=== PATIENT | female | born 1955 | race Caucasian/White ===

== ENCOUNTER → 2018-09-02 | Outpatient (CLI) | payer OTHER, BC ==
[~2018-09-02] MED LIST: ASCO500T8 PO; ASPI-496 PO; ATOR20TA37 PO; CHOL200024 PO; CYAN50008 PO; OMEG100023 PO
[2018-09-02 13:27] LABS: BASOPHILS # (AUTO) 0.05 x10^3/uL (0-0.1); BASOPHILS % (AUTO) 1 % (0-1); EOSINOPHILS # (AUTO) 0.08 x10^3/uL (0-0.4); EOSINOPHILS % (AUTO) 1 % (1-7); LYMPHOCYTES % (AUTO) 23 % (22-44); MD NO; MEAN CORPUSCULAR HEMOGLOBIN 31.1 pg (27.0-34.8); MEAN CORPUSCULAR HGB CONC 34.2 g/dL (32.4-35.8); MEAN CORPUSCULAR VOLUME 90.9 fL (80-100); MEAN PLATELET VOLUME 7.9 fL (7.4-10.4); MONOCYTES # (AUTO) 0.53 x10^3/uL (0.2-0.8); MONOCYTES % (AUTO) 6 % (2-9); NEUTROPHILS # (AUTO) 6.02 x10^3/uL (1.8-6.8); NEUTROPHILS % (AUTO) 69 % (42-75); PLATELET COUNT 340 x10^3/uL (130-400); RED BLOOD COUNT 5.04 x10^6/uL (3.82-5.3); RED CELL DISTRIBUTION WIDTH 13.3 % (9.6-15.2)
[2018-09-02 13:32] LABS: INTERNATIONAL NORMALIZED RATIO 0.9 (0.93-1.1); PROTHROMBIN TIME 9.5 Seconds (9.6-11.5)
[2018-09-02 13:34] LABS: ALBUMIN 3.9 g/dL (3.4-5.0); ANION GAP 5 mmol/L (5-15); CALCIUM 9.3 mg/dL (8.5-10.1); CHLORIDE 106 mmol/L (98-107)
[2018-09-02 13:37] LABS: ALANINE AMINOTRANSFERASE 45 U/L (12-78); ALKALINE PHOSPHATASE 101 U/L (45-117); BILIRUBIN,TOTAL 0.5 mg/dL (0.2-1.0); CREATININE 0.91 mg/dL (0.55-1.02); TOTAL PROTEIN 7.8 g/dL (6.4-8.2)
== END | disposition home or self-care (01) ==
LOC: STAR 12:28
PROVIDERS: ATTEND Specialist
DX: Z01.818 Encounter for other preprocedural examination (principal); R19.07 Generalized intra-abdominal and pelvic swelling, mass and lump; N95.0 Postmenopausal bleeding
CPT/HCPCS: 36415; 71046; 80053; 85025; 85610; 85730; 93005

== ENCOUNTER 2018-09-07 07:43 | Day surgery (SDC) | payer OTHER, BC ==
[~2018-09-07] VITALS: Ht 162.6 cm; Wt 84.0 kg
[2018-09-07] MEDS ORDERED: LACTATED RINGERS 1,000 ML IV SCH (08:11)
[2018-09-07 08:24] VITALS: BP 111/73
[2018-09-07] MEDS ORDERED: APREPITANT 40 MG CAPSULE PO STA (09:04)
[2018-09-07] MEDS ORDERED: APREPITANT 40 MG CAPSULE ONE (09:06)
[2018-09-07] MEDS ORDERED: PROPOFOL 10 MG/ML, 20ML ONE (09:15)
[2018-09-07] MEDS ORDERED: EPHEDRINE 50 MG/ML, 1ML ONE (09:15)
[2018-09-07] MEDS ORDERED: PHENYLEPHRINE 10 MG/ML ONE (09:15)
[2018-09-07] MEDS ORDERED: DEXAMETHASONE 4 MG/ML, 1ML ONE (09:16)
[2018-09-07] MEDS ORDERED: SUCCINYLCHOLINE 20 MG/ML, 10ML ONE (09:16)
[2018-09-07] MEDS ORDERED: ONDANSETRON 2MG/ML, 2ML ONE (09:16)
[2018-09-07] MEDS ORDERED: KETOROLAC 30 MG/1 ML IM PRN ×2 (10:00)
[2018-09-07] MEDS ORDERED: HYDROmorphone 2 MG/ML, 1ML IVPush PRN (10:00)
[2018-09-07] MEDS ORDERED: ACETAMINOPHEN 325 MG TABLET PO PRN (10:00)
[2018-09-07] MEDS ORDERED: MEPERIDINE/PF 25MG/0.5ML IVPush PRN (10:00)
[2018-09-07] MEDS ORDERED: HYDROcodone/APAP 7.5-325MG/15ML UDC PO PRN (10:00)
[2018-09-07] MEDS ORDERED: OXYcodone 5 MG/5 ML ORAL.SOL UDC PO PRN (10:00)
[2018-09-07] MEDS ORDERED: MORPHINE SULFATE 4 MG/ML, 1ML IVPush PRN (10:00)
[2018-09-07] MEDS ORDERED: KETOROLAC 30 MG/1 ML IV PRN ×2 (10:00)
[2018-09-07] MEDS ORDERED: FENTANYL PF 100 MCG/2ML IV PRN (10:00)
[2018-09-07] MEDS ORDERED: FENTANYL PF 100 MCG/2ML ONE (10:37)
[2018-09-07] MEDS ORDERED: MIDAZOLAM 1 MG/ML, 2ML ONE (10:38)
[2018-09-07] MEDS ORDERED: KETOROLAC 30 MG/1 ML ONE (11:39)
== END 2018-09-07 13:00 | disposition home or self-care (01) ==
LOC: OUT 07:43
PROVIDERS: ATTEND Specialist
DX: N71.1 Chronic inflammatory disease of uterus (principal); N95.0 Postmenopausal bleeding; E78.2 Mixed hyperlipidemia; Z88.8 Allergy status to other drugs, medicaments and biological substances; Z90.49 Acquired absence of other specified parts of digestive tract; Z98.890 Other specified postprocedural states
CPT/HCPCS: 36415; 58120; 86850; 86900; 88305; J0330; J1100; J1885; J2250; J2370; J2405; J2704; J3010; J7120; J8501

== ENCOUNTER 2019-08-17 07:42 | Day surgery (SDC) | payer BC ==
[~2019-08-17] VITALS: Ht 162.6 cm; Wt 82.3 kg
[2019-08-17] MEDS ORDERED: LACTATED RINGERS 1,000 ML IV SCH (08:12)
[2019-08-17] MEDS ORDERED: PLEASE ENTER HEIGHT AND WEIGHT MC SCH (08:30)
[2019-08-17] MEDS ORDERED: LIDOCAINE-MPF 1%, 2ML INFIL ONE (08:30)
[2019-08-17 08:36] VITALS: BP 107/79
[2019-08-17] MEDS ORDERED: LIDOCAINE-MPF 1%, 2ML ONE (08:36)
[2019-08-17 09:13] LABS: BASOPHILS # (AUTO) 0.04 x10^3/uL (0-0.1); BASOPHILS % (AUTO) 1 % (0-1); EOSINOPHILS # (AUTO) 0.03 x10^3/uL (0-0.4); EOSINOPHILS % (AUTO) 1 % (1-7); LYMPHOCYTES # (AUTO) 1.44 x10^3/uL (1-3.4); LYMPHOCYTES % (AUTO) 21 % (22-44); MD NO; MEAN CORPUSCULAR HEMOGLOBIN 30.8 pg (27.0-34.8); MEAN CORPUSCULAR HGB CONC 33.5 g/dL (32.4-35.8); MEAN CORPUSCULAR VOLUME 91.9 fL (80-100); MEAN PLATELET VOLUME 7.8 fL (7.4-10.4); MONOCYTES % (AUTO) 7 % (2-9); NEUTROPHILS % (AUTO) 71 % (42-75); PLATELET COUNT 331 x10^3/uL (130-400); RED BLOOD COUNT 4.83 x10^6/uL (3.82-5.3); RED CELL DISTRIBUTION WIDTH 12.5 % (9.6-15.2)
[2019-08-17 09:23] LABS: ALANINE AMINOTRANSFERASE 40 U/L (12-78); ALBUMIN 3.3 g/dL (3.4-5.0); ANION GAP 6 mmol/L (5-15); CALCIUM 8.7 mg/dL (8.5-10.1); CHLORIDE 110 mmol/L (98-107); CREATININE 0.89 mg/dL (0.55-1.02); INTERNATIONAL NORMALIZED RATIO 0.91 (0.93-1.1); PROTHROMBIN TIME 9.6 Seconds (9.6-11.5)
[2019-08-17 09:26] LABS: ALKALINE PHOSPHATASE 95 U/L (45-117); BILIRUBIN,TOTAL 0.7 mg/dL (0.2-1.0); TOTAL PROTEIN 7.3 g/dL (6.4-8.2)
[2019-08-17] MEDS ORDERED: ALBUTEROL/IPRATROPIUM 2.5MG/0.5MG, 3 ML NPPB PRN (09:30)
[2019-08-17] MEDS ORDERED: ACETAMINOPHEN 325 MG TABLET PO PRN (09:30)
[2019-08-17] MEDS ORDERED: MEPERIDINE/PF 25MG/ML,1ML IVPush PRN (09:30)
[2019-08-17] MEDS ORDERED: OXYcodone 5 MG/5 ML ORAL.SOL UDC PO PRN (09:30)
[2019-08-17] MEDS ORDERED: FENTANYL PF 100 MCG/2ML IV PRN (09:30)
[2019-08-17] MEDS ORDERED: PROMETHAZINE 25 MG/ML, 1ML IV PRN (09:30)
[2019-08-17] MEDS ORDERED: MIDAZOLAM 1 MG/ML, 2ML IV PRN (09:30)
[2019-08-17] MEDS ORDERED: hydrALAzine 20 MG/ML, 1ML IV PRN (09:30)
[2019-08-17] MEDS ORDERED: METOPROLOL 1 MG/ML, 5ML IV PRN (09:30)
[2019-08-17] MEDS ORDERED: HYDROmorphone 2 MG/ML, 1ML IVPush PRN (09:30)
[2019-08-17] MEDS ORDERED: FENTANYL PF 100 MCG/2ML ONE (09:38)
[2019-08-17] MEDS ORDERED: MIDAZOLAM 1 MG/ML, 2ML ONE (09:38)
[2019-08-17] MEDS ORDERED: KETOROLAC 30 MG/1 ML ONE (10:42)
[2019-08-17] MEDS ORDERED: DEXAMETHASONE 4 MG/ML, 1ML ONE (11:05)
[2019-08-17] MEDS ORDERED: PROPOFOL 10 MG/ML, 20ML ONE (11:05)
[2019-08-17] MEDS ORDERED: ONDANSETRON 2MG/ML, 2ML ONE (11:05)
== END 2019-08-17 13:25 | disposition home or self-care (01) ==
LOC: OUT 07:42
PROVIDERS: ATTEND Specialist
DX: N95.0 Postmenopausal bleeding (principal); N85.8 Other specified noninflammatory disorders of uterus; E78.2 Mixed hyperlipidemia; E55.9 Vitamin D deficiency, unspecified; E66.9 Obesity, unspecified; Z68.29 Body mass index [BMI] 29.0-29.9, adult; Z79.82 Long term (current) use of aspirin; Z79.899 Other long term (current) drug therapy; Z88.8 Allergy status to other drugs, medicaments and biological substances; Z90.49 Acquired absence of other specified parts of digestive tract; Z98.890 Other specified postprocedural states; Z80.42 Family history of malignant neoplasm of prostate; Z80.8 Family history of malignant neoplasm of other organs or systems
CPT/HCPCS: 36415; 58120; 80053; 85025; 85610; 85730; 88305; 93005; J1100; J1885; J2250; J2405; J2704; J3010; J7120

== ENCOUNTER 2019-08-31 05:52 | Day surgery (SDC) | payer BC ==
[~2019-08-31] VITALS: Ht 162.6 cm; Wt 81.8 kg
[2019-08-31] MEDS ORDERED: LACTATED RINGERS 1,000 ML IV SCH (06:15)
[2019-08-31 06:18] VITALS: BP 125/79
[2019-08-31] MEDS ORDERED: BUPIVACAINE/PF 0.25% ONE (06:55)
[2019-08-31] MEDS ORDERED: HEPARIN 1,000 UNITS/ML, 10ML ONE (06:56)
[2019-08-31] MEDS ORDERED: EPINEPHRINE 1 MG/ML, 1ML ONE (06:56)
[2019-08-31] MEDS ORDERED: INDOCYANINE GREEN 25 MG VIAL ONE (06:56)
[2019-08-31] MEDS ORDERED: MIDAZOLAM 1 MG/ML, 2ML ONE (07:06)
[2019-08-31] MEDS ORDERED: SCOPOLAMINE 1MG PATCH TD ONE (07:19)
[2019-08-31] MEDS ORDERED: METRONIDAZOLE PMX 500MG/100ML 100 ML IV ONE (07:30)
[2019-08-31] MEDS ORDERED: VANCOMYCIN PMX 1GM/200ML 200 ML IV ONE (07:30)
[2019-08-31] MEDS ORDERED: SCOPOLAMINE 1MG PATCH TD SCH (07:30)
[2019-08-31] MEDS ORDERED: DEXAMETHASONE 4 MG/ML, 1ML ONE (07:40)
[2019-08-31] MEDS ORDERED: PROPOFOL 10 MG/ML, 20ML ONE (07:40)
[2019-08-31] MEDS ORDERED: ONDANSETRON 2MG/ML, 2ML ONE ×2 (07:40→11:04)
[2019-08-31] MEDS ORDERED: SUCCINYLCHOLINE 20 MG/ML, 10ML ONE (07:40)
[2019-08-31] MEDS ORDERED: ROCURONIUM 10 MG/ML,10ML ONE (07:40)
[2019-08-31] MEDS ORDERED: BUPIVACAINE/PF-EPI 0.25% 1:200K INFIL ONE (08:19)
[2019-08-31] MEDS ORDERED: ONDANSETRON 2MG/ML, 2ML IVPush PRN (08:30)
[2019-08-31] MEDS ORDERED: DIAZEPAM 5 MG/ML, 2ML IV PRN ×2 (08:30)
[2019-08-31] MEDS ORDERED: hydrALAzine 20 MG/ML, 1ML IV PRN (08:30)
[2019-08-31] MEDS ORDERED: PROMETHAZINE 25 MG/ML, 1ML IV PRN (08:30)
[2019-08-31] MEDS ORDERED: LABETALOL 5MG/ML, 20ML IV PRN (08:30)
[2019-08-31] MEDS ORDERED: MEPERIDINE/PF 25MG/0.5ML IVPush PRN (08:30)
[2019-08-31] MEDS ORDERED: KETOROLAC 30 MG/1 ML IV PRN (08:30)
[2019-08-31] MEDS ORDERED: ALBUTEROL SULFATE 2.5 MG/3 ML NPPB PRN (08:30)
[2019-08-31] MEDS ORDERED: OXYcodone 5 MG/5 ML ORAL.SOL UDC PO PRN (08:30)
[2019-08-31] MEDS ORDERED: METOCLOPRAMIDE 5 MG/ML, 2ML IV PRN (08:30)
[2019-08-31] MEDS ORDERED: FENTANYL PF 100 MCG/2ML IV PRN (08:30)
[2019-08-31] MEDS ORDERED: FENTANYL PF 250 MCG/5ML ONE (10:09)
[2019-08-31] MEDS ORDERED: FENTANYL PF 100 MCG/2ML ONE (11:09)
[2019-08-31] MEDS ORDERED: KETOROLAC 30 MG/1 ML ONE (11:09)
[2019-08-31] MEDS ORDERED: MEPERIDINE/PF 25MG/ML,1ML ONE (11:22)
[2019-08-31] MEDS ORDERED: HYDROmorphone 1 MG/ML, 1ML INJ ONE (11:44)
[2019-08-31] MEDS: HYDROmorphone 1 MG/ML, 1ML INJ IV PRN ×2 (11:46→11:51)
[2019-08-31] MEDS ORDERED: OXYcodone/APAP 5/325MG TABLET PO ONE (14:30)
== END 2019-08-31 16:00 | disposition home or self-care (01) ==
LOC: OUT 05:52
PROVIDERS: ATTEND Specialist
DX: D26.0 Other benign neoplasm of cervix uteri (principal); C54.1 Malignant neoplasm of endometrium; D25.1 Intramural leiomyoma of uterus; E78.2 Mixed hyperlipidemia; E55.9 Vitamin D deficiency, unspecified; E66.9 Obesity, unspecified; Z68.29 Body mass index [BMI] 29.0-29.9, adult; Z79.82 Long term (current) use of aspirin; Z79.899 Other long term (current) drug therapy; Z88.8 Allergy status to other drugs, medicaments and biological substances; Z90.49 Acquired absence of other specified parts of digestive tract; Z98.890 Other specified postprocedural states; Z80.42 Family history of malignant neoplasm of prostate; Z80.8 Family history of malignant neoplasm of other organs or systems
CPT/HCPCS: 36415; 52332; 58573; 74018; 86850; 86900; 86923; 88307; C1769; C2617; J0171; J0330; J1100; J1170; J1885; J2175; J2250; J2405; J2704; J3010; J3370; J3490; J7120; S2900; J1644